=== PATIENT | male | born 1945 ===

== ENCOUNTER 2019-07-18 06:00 | Outpatient (RCR) | payer MEDICARE, OTHER, SELFPAY | END 2019-07-18 23:59 | disposition home or self-care (01) | LOC: GPT 06:00 | PROVIDERS: PCP Family Medicine; Referring Provider Orthopaedic Surgery; Visit Provider Orthopaedic Surgery | DX: Z47.1 Aftercare following joint replacement surgery (principal); Z96.652 Presence of left artificial knee joint | CPT/HCPCS: 97110; 97161; 97530 ==

== ENCOUNTER 2019-07-19 06:00 | Outpatient (RCR) | payer MEDICARE, OTHER, SELFPAY | END 2019-08-17 23:59 | disposition home or self-care (01) | LOC: GPT 06:00 | PROVIDERS: PCP Family Medicine; Referring Provider Orthopaedic Surgery; Visit Provider Orthopaedic Surgery | DX: Z47.1 Aftercare following joint replacement surgery (principal); Z96.652 Presence of left artificial knee joint | CPT/HCPCS: 97110; 97112; 97116; 97530; 97760; G0283 ==

== ENCOUNTER 2019-08-18 06:00 | Outpatient (RCR) | payer MEDICARE, OTHER, SELFPAY | END 2019-09-17 23:59 | disposition home or self-care (01) | LOC: GPT 06:00 | PROVIDERS: PCP Family Medicine; Referring Provider Orthopaedic Surgery; Visit Provider Orthopaedic Surgery | DX: Z47.1 Aftercare following joint replacement surgery (principal); Z96.652 Presence of left artificial knee joint | CPT/HCPCS: 97530 ==

== ENCOUNTER 2021-11-12 06:00 | Outpatient (RCR) | payer MEDICARE, OTHER, SELFPAY | END 2021-11-16 23:59 | disposition home or self-care (01) | LOC: GPT 06:00 | PROVIDERS: PCP Family Medicine; Referring Provider Orthopaedic Surgery; Visit Provider Orthopaedic Surgery | DX: Z47.1 Aftercare following joint replacement surgery (principal); Z96.611 Presence of right artificial shoulder joint | CPT/HCPCS: 97110; 97140; 97161 ==

== ENCOUNTER 2021-11-17 06:00 | Outpatient (RCR) | payer MEDICARE, OTHER, SELFPAY | END 2021-12-17 23:59 | disposition home or self-care (01) | LOC: GPT 06:00 | PROVIDERS: PCP Family Medicine; Visit Provider Orthopaedic Surgery | DX: Z47.1 Aftercare following joint replacement surgery (principal); Z96.611 Presence of right artificial shoulder joint | CPT/HCPCS: 97110; 97140 ==

== ENCOUNTER 2022-02-06 16:16 | Outpatient (CLI) | payer MEDICARE, OTHER, SELFPAY ==
--- NOTE | 2022-02-06 | US_ITS ---
WS: [id number] RENAL ULTRASOUND HISTORY: CKD COMPARISON: None available. TECHNIQUE: 2-D and color Doppler imaging of the kidney submitted. Right kidney: 12.0 cm x 5.5 cm x 5.0 cm. Normal echogenicity with no hydronephrosis or mass. Left kidney: 10.4 cm x 5.1 cm x 4.5 cm. Normal echogenicity with no hydronephrosis or mass. Aorta: Normal. Urinary Bladder: Mild distention. The prostate gland does appear slightly enlarged encroaching into t he base of the bladder. US/US renal BI* [id number] IMPRESSION: Normal renal ultrasound.
== END 2022-02-06 16:17 | disposition home or self-care (01) ==
LOC: RAD 16:17
PROVIDERS: PCP Family Medicine; Visit Provider Internal Medicine Nephrology
DX: N18.31 Chronic kidney disease, stage 3a (principal)
CPT/HCPCS: 76770

== ENCOUNTER 2024-03-31 12:06 | Outpatient (CLI) | payer OTHER, SELFPAY ==
[2024-03-31 12:36] LABS: Basophils % 0.4 %; Eosinophils # 0.1 10^3/uL (0.0-0.8); Eosinophils % 1.3 %; Hematocrit 46.7 % (37-53); Lymphocytes # 2.5 10^3/uL (0.8-4.8); Lymphocytes % 29.3 %; Mean Corpuscular Hemoglobin 29.6 pg (27-33); Mean Corpuscular Volume 89.8 fl (82-101); Mean Platelet Volume 10.3 fL (7.4-10.4); Monocytes # 0.6 10^3/uL (0.2-0.9); Neutrophils # 5.17 10^3/uL (1.8-7.7); Neutrophils % 61.6 %; Nucleated Red Blood Cells % 0 %; Platelet Count 198 10^3/cmm (157-399); Red Cell Distribution Width 13.1 % (12.1-15.1); White Blood Count 8.39 10^3/uL (3.29-11.43)
[2024-03-31 12:54] LABS: Albumin Level 4.6 g/dL (3.5-5.2); Anion Gap 16.6 (5-19); Blood Urea Nitrogen 19 mg/dL (8-23); Calcium 9.5 mg/dL (8.5-10.5); Calcium 9.8 mg/dL (8.5-10.5); Carbon Dioxide 25 mmol/L (22-29); Chloride 100 mmol/L (98-107); Glucose 143 mg/dL (65-115); Phosphorus 3.1 mg/dL (2.5-4.5); Potassium 4.6 mmol/L (3.5-5.1); Sodium 137 mmol/L (136-145)
[2024-03-31 13:01] LABS: Parathyroid Hormone 49.9 pg/mL (15-65)
[2024-03-31 13:08] LABS: Creatinine Urine, Random 144 mg/dL (39-259); Microalbumin Random Urine 8 ug/dL (0-20)
[2024-03-31 13:09] LABS: Microalbum Creatinine Ratio Ur 56 mg/dL (0-20)
== END 2024-03-31 12:07 | disposition home or self-care (01) ==
PROVIDERS: PCP Family Medicine; Visit Provider Registered Nurse
DX: N18.31 Chronic kidney disease, stage 3a (principal)
CPT/HCPCS: 36415; 80069; 82044; 82310; 83970; 85025